=== PATIENT | male | born 1990 | race Caucasian/White ===

== ENCOUNTER 2017-02-14 17:41 | Emergency (ER) | payer OTHER ==
[~2017-02-14] VITALS: Ht 188 cm; Wt 168.3 kg
[2017-02-14 19:01] LABS: CHLORIDE 104 mEq/L (99-109); SODIUM 137 mEq/L (136-147)
[2017-02-14 19:03] LABS: GLUCOSE 148 mg/dL (70-99)
[2017-02-14 19:04] LABS: ANION GAP 13 MEQ/L (2-14)
[2017-02-14 19:08] LABS: UREA NITROGEN (BUN) 10 mg/dL (9-23)
[2017-02-14 19:15] LABS: GFR ESTIMATE (CALCULATED) > 59 mL/min/
[2017-02-14 21:45] VITALS: BP 159/107
[2017-02-14] MEDS ORDERED: ZOFRAN ODT8 MG PO (21:45)
== END 2017-02-14 21:47 | disposition home or self-care (01) ==
LOC: EME 17:41
PROVIDERS: Physician Assistant
DX: B34.9 Viral infection, unspecified (principal); E86.0 Dehydration
CPT/HCPCS: 80048; 99281; 99285; J7030